=== PATIENT | female | born 1980 | race Caucasian/White ===

== ENCOUNTER 2018-10-18 11:35 | Inpatient (IN) | payer OTHER ==
[2018-10-18] MEDS ORDERED: CITRIC ACID/SODIUM CITRATE 30 ML UNIT-DOSE CUP PO ONE (12:25)
[2018-10-18] MEDS: ELECTROLYTE-148 SOLN 1,000 ML IV SCH ×2 (12:45→17:03)
[2018-10-18 13:29] VITALS: BMI 31.1
[2018-10-18 14:19] LABS: BASO % 0.2 % (0-2.0); EOS % 0.2 % (0-4.5); HEMATOCRIT 34.7 % (32.4-45.2); HEMOGLOBIN 11.9 GM/dL (10.7-15.3); LYMPH % 12.2 % (8-40); MCH 27.1 pg (25.7-33.7); MCHC 34.3 g/dl (32.0-36.0); MEAN PLT VOLUME 8.8 fl (7.5-11.1); MONO % 4.8 % (3.8-10.2); NEUT % 82.6 % (42.8-82.8); PLATELET COUNT 233 K/MM3 (134-434); RBC 4.39 M/mm3 (3.60-5.2); RDW 16.9 % (11.6-15.6); WHITE BLOOD COUNT 7.8 K/mm3 (4.0-10.0)
[2018-10-18 14:38] LABS: ALBUMIN 2.9 g/dl (3.4-5.0); ALK PHOS 185 U/L (45-117); ANION GAP 8 MMOL/L (8-16); BILIRUBIN,TOTAL 0.3 mg/dL (0.2-1); BLOOD UREA NITROGEN 6 mg/dL (7-18); CALCIUM 9.1 mg/dL (8.5-10.1); CHLORIDE 104 mmol/L (98-107); CO2 26 mmol/L (21-32); CREATININE 0.5 mg/dL (0.55-1.3); GLUCOSE,RANDOM 82 mg/dL (74-106); POTASSIUM 3.8 mmol/L (3.5-5.1); SGOT/AST 18 U/L (15-37); SGPT/ALT 16 U/L (13-61); SODIUM 139 mmol/L (136-145); TOT PROT 6.6 g/dl (6.4-8.2)
[2018-10-18 14:47] LABS: RPR NONREACTIVE (NONREACTIVE)
--- NOTE | 2018-10-18 15:27 | HP ---
Past Medical History - Admission Chief Complaint: Sent up from [facility]. History of Present Illness: 38 y/o female with SIUP at 38.1 weeks by dates/38.4 weeks by sonogram sent up from [facility] for marginal cord insertion and low EUGENIA, breech presentation and EFW 15%ile - [facility] recommended delivery. Pt with h/o previous c section and baby in breech presentation. History Source: Patient, Medical Record Limitations to Obtaining History: No Limitations - Past Medical History Cardiovascular: No: HTN Pulmonary: No: COPD Hepatobiliary: No: Hepatitis B ...: 4 ...Para: 2 ...Term: 2 ...: 0 ...Spon : 1 ...Induced : 0 ...Multiple Gestation: 0 ...LMP: 01/24/18 ... Weeks Gestation by Dates: 38.1 ...EDC by Dates: 10/31/18 ...EDC by Sono: 10/29/18 Heme/Onc: No: Anemia Psych: No: Anxiety, Bipolar, Depression Endocrine: No: Diabetes Mellitus, Hypothyroidism - Past Surgical History Past Surgical History: Yes: Hx Myomectomy: No Hx Transabdominal Cerclage: No - Smoking History Smoking history: Never smoked Have you smoked in the past 12 months: No - Alcohol/Substance Use Hx Alcohol Use: No - Social History Usual Living Arrangement: Yes: With Spouse ADL: Independent History of Recent Travel: No Home Medications - Allergies Allergies/Adverse Reactions: Allergies Allergy/AdvReac Type Severity Reaction Status Date / Time No Known Allergies Allergy Verified 10/18/18 12:52 - Home Medications Home Medications: Ambulatory Orders Ferrous Sulfate 325 mg PO DAILY 09/06/18 Pnv No.95/Ferrous Fum/Folic AC [ Vitamin Tablet] 1 each PO DAILY Review of Systems - Review of Systems Constitutional: reports: No Symptoms Eyes: reports: No Symptoms HENT: reports: No Symptoms Neck: reports: No Symptoms Cardiovascular: reports: No Symptoms Respiratory: reports: No Symptoms Gastrointestinal: reports: No Symptoms Genitourinary: reports: No Symptoms Breasts: reports: No Symptoms Reported Musculoskeletal: reports: No Symptoms Integumentary: reports: No Symptoms Neurological: reports: No Symptoms Endocrine: reports: No Symptoms Hematology/Lymphatic: reports: No Symptoms Psychiatric: reports: No Symptoms Physical Exam - Maternity Vital Signs: Vital Signs Temperature 98.1 F 10/18/18 12:25 Pulse Rate 71 10/18/18 12:25 Respiratory Rate 17 10/18/18 12:25 Blood Pressure 109/65 10/18/18 12:25 O2 Sat by Pulse Oximetry (%) Constitutional: Yes: Well Nourished, No Distress, Calm Eyes: Yes: Conjunctiva Clear, EOM Intact HENT: Yes: Atraumatic, Normocephalic Neck: Yes: Supple, Trachea Midline Cardiovascular: Yes: Regular Rate and Rhythm Lungs: Clear to auscultation - Abdominal Exam/OB Number of Fetuses: Single Presentation: Breech Contractions: No Monitor Mode: External Category: I Accelerations: Uniform Decelerations: None - Vaginal Exam/OB Vaginal Bleediing: No - Physical Exam Psychiatric: Yes: Alert, Oriented - Labs Lab Results: CBC, BMP 10/18/18 13:15 10/18/18 13:15 Hemorrhage Risk Assessment - Risk Factors Medium Risk Factors: Yes: None High Risk Factors: Yes: None Risk Score: 1 Risk Level: Medium Risk Problem List - Problems (1) Breech presentation Code(s): O32.1XX0 - MATERNAL CARE FOR BREECH PRESENTATION, UNSP (2) Marginal insertion of umbilical cord affecting management of mother in third trimester Code(s): O43.193 - OTHER MALFORMATION OF PLACENTA, THIRD TRIMESTER Assessment/Plan 38 y/o with SIUP at 38+ weeks gestation, recommended delivery by MFM NPO for repeat c section anesthesia/nursing aware
[2018-10-18 16:17] LABS: INR 0.98 (0.83-1.09); PROTHROMBIN TIME (PATIENT) 11.6 SEC (9.7-13.0)
[2018-10-18] MEDS ORDERED: ONDANSETRON 4 MG/2 ML VIAL IVPUSH PRN (16:17)
[2018-10-18 16:20] LABS: ACTIVATED PTT 29.2 SECONDS (25.2-36.5)
[2018-10-18] MEDS ORDERED: morphine SULFATE/Preservative Free 0.5 MG/ML (1cc Syringe) ONE (18:49)
[2018-10-18] MEDS ORDERED: KETOROLAC TROMETHAMINE 30 MG/1 ML VIAL ONE (18:49)
[2018-10-18] MEDS ORDERED: BUPIVACAINE 0.75% IN DEXTROSE/PF 2ML AMPULE NR ONE (18:51)
[2018-10-18] MEDS ORDERED: IBUPROFEN 800 MG/8 ML IJ IVPB PRN (19:15)
[2018-10-18] MEDS ORDERED: OXYTOCIN 20 UNITS in 0.9% NS 20 UNIT/1,000 ML INFUS.BAG IV SCH (19:15)
[2018-10-18] MEDS ORDERED: METHYLERGONOVINE MALEATE 0.2 MG/1 ML AMP IM PRN (19:15)
[2018-10-18] MEDS ORDERED: oxyCODONE HCL 5 MG TABLET PO PRN (19:15)
[2018-10-18] MEDS ORDERED: ceFAZolin SODIUM 1 GM VIAL ONE (19:24)
[2018-10-18] MEDS ORDERED: OXYTOCIN 20 UNITS in 0.9% NS 20 UNIT/1,000 ML INFUS.BAG IV ONE (19:27)
[2018-10-18] MEDS ORDERED: ePHEDrine SULFATE 50 MG/1 ML AMPULE ONE (19:27)
--- NOTE | 2018-10-18 21:09 | OP ---
Operative Note - Note: Operative Date: 10/18/18 Pre-Operative Diagnosis: oligohydramnios, marginal cord insertion, breech, prior c section Operation: repeat low transverse c section Post-Operative Diagnosis: Same as Pre-op Surgeon: Beatrice Bonilla District Recruiter: David Newby Anesthesiologist/SLOT ROUTER: Zack Bay Specimens Removed: placenta Estimated Blood Loss (mls): 600 Operative Report Dictated: Yes
[2018-10-18] MEDS ORDERED: TUBERCULIN PPD 5 TU/0.1ML SYRINGE (IN PATIENT USE ONLY) ID ONE (22:15)
[2018-10-19 04:17] LABS: HBsAG SCREEN Negative (Negative)
[2018-10-19 06:10] LABS: BASO % 0.2 % (0-2.0); EOS % 0.2 % (0-4.5); HEMATOCRIT 29.8 % (32.4-45.2); HEMOGLOBIN 9.6 GM/dL (10.7-15.3); LYMPH % 7.4 % (8-40); MCH 25.8 pg (25.7-33.7); MCHC 32.2 g/dl (32.0-36.0); MEAN CELL VOLUME 80.1 fl (80-96); MONO % 5.4 % (3.8-10.2); NEUT % 86.8 % (42.8-82.8); PLATELET COUNT 182 K/MM3 (134-434); RBC 3.72 M/mm3 (3.60-5.2); WHITE BLOOD COUNT 11.5 K/mm3 (4.0-10.0)
--- NOTE | 2018-10-19 08:29 | PN ---
Progress Note (short form) - Note Progress Note: Post op day#1.S/P C Section under spinal anesthesia with duramorph uneventful.Patient stable and c/o some pain for which she is on medication.No any anesthesia related problem.Patient Dc from the anesthesia care.
--- NOTE | 2018-10-19 09:17 | PN ---
Post Progress Note - Subjective Subjective: Pt seen/evaluated and doing well. Minimal pain. Bleeding normal per nursing staff. Tolerating clears. Not yet OOB. Type of Delivery: Repeat C/S Vital Signs: Vital Signs Temperature 97.9 F 10/19/18 06:00 Pulse Rate 89 10/19/18 06:00 Respiratory Rate 20 10/19/18 06:00 Blood Pressure 91/56 L 10/19/18 06:00 O2 Sat by Pulse Oximetry (%) 100 10/18/18 21:10 Uterus: Yes: Fundus Firm Incision: Yes: Dressing dry and intact Abdomen/GI: Yes: Abdomen soft Lochia: Yes: Rubra Lochia, amount: Small Extremities: Yes: Calves non-tender Perineum: Yes: Intact Activity: Other (to get OOB today) - Labs Labs: CBC WBC 11.5 K/mm3 (4.0-10.0) H 10/19/18 05:56 RBC 3.72 M/mm3 (3.60-5.2) 10/19/18 05:56 Hgb 9.6 GM/dL (10.7-15.3) L 10/19/18 05:56 Hct 29.8 % (32.4-45.2) L 10/19/18 05:56 MCV 80.1 fl (80-96) 10/19/18 05:56 MCH 25.8 pg (25.7-33.7) 10/19/18 05:56 MCHC 32.2 g/dl (32.0-36.0) 10/19/18 05:56 RDW 17.0 % (11.6-15.6) H 10/19/18 05:56 Plt Count 182 K/MM3 (134-434) D 10/19/18 05:56 MPV 8.0 fl (7.5-11.1) 10/19/18 05:56 Absolute Neuts (auto) 10.0 K/mm3 (1.5-8.0) H 10/19/18 05:56 Neutrophils % 86.8 % (42.8-82.8) H 10/19/18 05:56 Lymphocytes % 7.4 % (8-40) L D 10/19/18 05:56 Monocytes % 5.4 % (3.8-10.2) 10/19/18 05:56 Eosinophils % 0.2 % (0-4.5) 10/19/18 05:56 Basophils % 0.2 % (0-2.0) 10/19/18 05:56 Nucleated RBC % 0 % (0-0) 10/19/18 05:56 Problem List - Problems (1) Breech presentation Code(s): O32.1XX0 - MATERNAL CARE FOR BREECH PRESENTATION, UNSP (2) Marginal insertion of umbilical cord affecting management of mother in third trimester Code(s): O43.193 - OTHER MALFORMATION OF PLACENTA, THIRD TRIMESTER (3) delivery delivered Code(s): O82 - ENCOUNTER FOR DELIVERY WITHOUT INDICATION Assessment/Plan POD 1 doing well OOB, d/c santana today advance diet as tolerated routine care
[2018-10-19] MEDS: PRENATAL VITAMINS W/ FOLIC ACID TABLET (FP) PO SCH (12:21)
[2018-10-19] MEDS: oxyCODONE HCL 5 MG TABLET PO PRN ×2 (15:46→20:00)
[2018-10-19] MEDS: ACETAMINOPHEN 325 MG TABLET (FP) PO PRN ×2 (15:47→19:59)
[2018-10-19] MEDS: SIMETHICONE 80 MG TAB.CHEW (FP) PO PRN ×2 (15:48→20:04)
[2018-10-19] MEDS ORDERED: BISACODYL 10 MG SUPP.RECT RC PRN (19:15)
[2018-10-20] MEDS: ACETAMINOPHEN 325 MG TABLET (FP) PO PRN (01:38)
[2018-10-20] MEDS: SIMETHICONE 80 MG TAB.CHEW (FP) PO PRN ×4 (01:38→21:38)
[2018-10-20] MEDS: oxyCODONE HCL 5 MG TABLET PO PRN ×4 (01:38→21:38)
--- NOTE | 2018-10-20 07:56 | PN ---
Progress Note (SOAP) - Current Medications Current Medications: Active Medications Acetaminophen (Tylenol -) 650 mg PO Q4H PRN PRN Reason: FEVER Last Admin: 10/20/18 01:38 Dose: 650 mg Bisacodyl (Dulcolax Suppository -) 10 mg RC PRN PRN PRN Reason: CONSTIPATION Diphenhydramine HCl (Benadryl Injection -) 25 mg IVPUSH Q4H PRN PRN Reason: Pruritis Diphtheria/Tetanus/Acell Pertussis (Boostrix -) 0.5 ml IM .ONCE ONE Stop: 10/20/18 10:01 Parenteral Electrolytes (Plasma-Lyte 148 -) 1,000 mls @ 250 mls/hr IV ASDIR [facility] Last Admin: 10/18/18 17:03 Dose: 250 mls/hr Oxytocin/Sodium Chloride (Normal Saline+20 Units Oxytocin -) 20 unit in 1,000 mls @ 125 [facility] Last Admin: 10/18/18 19:31 Dose: 125 mls/hr Ibuprofen (Motrin -) 600 mg PO Q4H PRN PRN Reason: PAIN LEVEL 1 - 3 Ibuprofen (Caldolor Injection -) 800 mg IVPB Q8H PRN PRN Reason: PAIN LEVEL 6-10 Last Admin: 10/19/18 08:15 Dose: 800 mg Influenza Virus Vaccine Quadrival (Fluarix Quad [id number] Syringe) 60 mcg IM ONCE ONE Stop: 10/20/18 10:01 Methylergonovine Maleate (Methergine Injection -) 0.2 mg IM Q4H PRN PRN Reason: Excessive Bleeding (L&D) Ondansetron HCl (Zofran Injection) 4 mg IVPUSH Q4H PRN PRN Reason: NAUSEA Stop: 10/25/18 16:16 Oxycodone HCl (Roxicodone -) 5 mg PO Q4H PRN PRN Reason: PAIN LEVEL 4 - 6 Last Admin: 10/20/18 01:38 Dose: 5 mg Oxycodone HCl (Roxicodone -) 10 mg PO Q4H PRN PRN Reason: PAIN LEVEL 7 - 10 Multivit/Folic Acid/Iron ( Vitamins (Sjr) -) 1 tab PO DAILY [facility] Last Admin: 10/19/18 12:21 Dose: Not Given Simethicone (Mylicon -) 80 mg PO Q4H PRN PRN Reason: GAS Last Admin: 10/20/18 01:38 Dose: 80 mg - Objective Vital Signs: Vital Signs Temperature 98.7 F 10/19/18 22:00 Pulse Rate 73 10/19/18 22:00 Respiratory Rate 20 10/20/18 03:00 Blood Pressure 96/60 10/19/18 22:00 O2 Sat by Pulse Oximetry (%) 100 10/18/18 21:10 Constitutional: Yes: Well Nourished, No Distress Neck: Yes: WNL Respiratory: Yes: WNL Gastrointestinal: Yes: WNL, Soft ....Post : Yes: Uterus firm, Uterus non-tender Breast(s): Yes: WNL Musculoskeletal: Yes: WNL Extremities: Yes: WNL Peripheral Pulses WNL: No Edema: No Wound/Incision: Yes: Clean/Dry, Steri Strips, Open to air, Dressing Removed Neurological: Yes: WNL, Alert, Oriented Labs Lab Results: CBC, BMP 10/19/18 05:56 10/18/18 13:15 Assessment/Plan SP CS POD2 Plan Continued present management DC home in am if stable
[2018-10-20] MEDS: IBUPROFEN 600 MG TABLET (FP) PO PRN ×3 (08:56→21:39)
[2018-10-20] MEDS ORDERED: DIPHTH,PERTUSS(ACELL),TET 0.5 ML DISP.SYRIN IM ONE (10:00)
[2018-10-20] MEDS ORDERED: FLU VACCINE QUAD 60 MCG/0.5 ML (MDV 18-19) IM ONE (10:00)
[2018-10-20] MEDS: PRENATAL VITAMINS W/ FOLIC ACID TABLET (FP) PO SCH (10:00)
[2018-10-21 08:01] VITALS: BP 96/60; PULSE 83; TEMP 98.2
[2018-10-21] MEDS: PRENATAL VITAMINS W/ FOLIC ACID TABLET (FP) PO SCH (09:07)
[2018-10-21] MEDS: IBUPROFEN 600 MG TABLET (FP) PO PRN (09:11)
[2018-10-21] MEDS: ACETAMINOPHEN 325 MG TABLET (FP) PO PRN (09:13)
[2018-10-21] MEDS: SIMETHICONE 80 MG TAB.CHEW (FP) PO PRN (09:13)
[2018-10-21 09:21] LABS: BASO % 0.4 % (0-2.0); HEMATOCRIT 32.4 % (32.4-45.2); HEMOGLOBIN 10.9 GM/dL (10.7-15.3); LYMPH % 8.6 % (8-40); MCH 26.9 pg (25.7-33.7); MCHC 33.5 g/dl (32.0-36.0); MEAN CELL VOLUME 80.2 fl (80-96); MEAN PLT VOLUME 8.4 fl (7.5-11.1); MONO % 4.7 % (3.8-10.2); NEUT % 85.3 % (42.8-82.8); PLATELET COUNT 246 K/MM3 (134-434); RBC 4.05 M/mm3 (3.60-5.2); RDW 17.3 % (11.6-15.6); WHITE BLOOD COUNT 8.2 K/mm3 (4.0-10.0)
--- NOTE | 2018-10-21 11:04 | DS ---
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: Vital Signs Temperature 98.2 F 10/21/18 07:40 Pulse Rate 83 10/21/18 07:40 Respiratory Rate 18 10/21/18 07:40 Blood Pressure 96/60 10/21/18 07:40 O2 Sat by Pulse Oximetry (%) 100 10/18/18 21:10 Constitutional: Yes: Well Nourished, No Distress Cardiovascular: Yes: WNL Respiratory: Yes: WNL Gastrointestinal: Yes: WNL ....Post : Yes: Uterus firm, Uterus non-tender Breast(s): Yes: WNL Musculoskeletal: Yes: WNL Extremities: Yes: WNL Edema: No Wound/Incision: Yes: Steri Strips, Open to air Neurological: Yes: WNL, Alert, Oriented Labs: CBC, BMP 10/21/18 08:30 10/18/18 13:15 Delivery - Delivery Type of Anesthesia: Spinal EBL (cc): 600 Delivery, Single - Stages of Labor Date of Delivery: 10/18/18 Time of Delivery: 19:30 Time Placenta Delivered: 19:31 - Condition of Infant 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 Present: Yes Name: Latricia Conway Gender: Female Weight: 6 lb 2 oz Total Hours ROM (Hrs/Mins): 0Hrs/2Mins - 1 Minute Total Score: 8 5 Minutes Total Score: 9 - [place] Feeding Plan Initial Plan: Elected not to breastfeed exclusively throughout hospitalization Discharge Summary Current Active Problems Breech presentation (Acute) delivery delivered (Acute) Marginal insertion of umbilical cord affecting management of mother in third trimester (Acute) Procedures: Principal: Section Condition: Good - Instructions Diet, Activity, Other Instructions: Physical activity Resume your normal everyday activity as tolerated no heavy lifting or exercise until seen by your surgeon. You may walk unlimited adin of and climb stairs. You may resume driving the car when you feel safe and comfortable behind the wheel. No sexual activity as instructed. Wound care If you have a bandage, leave it on, and keep dry for 48-72 hours. After that time discard the outer bandage. If they are tapes on the skin under the out of bandage leave them in place. They will peel off in the next 7 to 10 days. Do Not Peel them off. You may shower the day after surgery. If there are tapes present on the skin, you may shower over them. Diet There are no dietary restrictions. Eat healthy, high-fiber foods. Drink 6 to 8 glasses of liquid each day. This will assist in keeping your bowels are regular. Pain management You may take Tylenol or acetaminophen or Ibuprofen (for example, Motrin, Advil etc.) from my pain prescription medication is ordered should be taken as prescribed for moderate to severe pain. Call MD for any of the following: Severe pain not relieved by medication Fever of 101 or higher Excessive bleeding or drainage on dressing Inability to urinate Call Dr. Bonilla and make appt. to be seen in one week. Referrals: Beatrice Bonilla DO [Staff Physician] - Disposition: HOME - Home Medications Comprehensive Discharge Medication List: Ambulatory Orders Ferrous Sulfate 325 mg PO DAILY 09/06/18 Pnv No.95/Ferrous Fum/Folic AC [ Vitamin Tablet] 1 each PO DAILY Ibuprofen [Motrin -] 600 mg PO QID #28 tablet 10/21/18 Oxycodone HCl/Acetaminophen [Percocet 5-325 mg Tablet] 1 - 2 tab PO Q6H #20 tab MDD 6 10/21/18
--- NOTE | 2018-10-21 21:06 | OP ---
DATE OF OPERATION: 10/18/2018 PREOPERATIVE DIAGNOSES: Reported oligohydramnios, marginal cord insertion, breech presentation, prior section. POSTOPERATIVE DIAGNOSES: Reported oligohydramnios, marginal cord insertion, breech presentation, prior section. OPERATION: Repeat low-transverse section. SURGEON: Beatrice Bonilla MD ANESTHESIA: Spinal by Dr. Zack Bay TOWER HAND: MEHNAZ Covarrubias COMPLICATIONS: None. ESTIMATED BLOOD LOSS: 600 mL. SPECIMENS REMOVED: Placenta. COUNTS: Sponge, needle, and instrument count correct. DISPOSITION: Stable to PACU. BRIEF HISTORY AND PROCEDURE: Patient is a 38-year-old female who had had a routine perinatology ultrasound for growth secondary to marginal cord insertion, was found to have an EUGENIA of 5.6 and an estimated weight percentage which was decreasing/dropping off the growth curve. Because the patient was 38 weeks gestation, the perinatologist recommended delivery at this time. Patient had a prior delivery and the fetus was in breech presentation at this point. Plan was made for a repeat section. Consents for the procedure were signed with the patient. She was then taken back to the operating room that evening, as her condition was stable and she had eaten at approximately 11 a.m. the procedure was started at approximately 7 p.m. After the patient was taken back to the operating room, she was given spinal anesthesia and placed in the dorsal supine position. A Novak catheter was placed under sterile conditions. She was prepped and draped in the usual sterile fashion and a hard timeout was performed. A Pfannenstiel skin incision was created in the skin where her prior incision was noted. This incision was carried to the underlying layer of the fascia sharply and the rectus fascia was incised on either side of the midline and this incision was carried in a superior lateral direction sharply. The fascia was tented upward and dissected off the underlying layer of rectus muscle sharply. The musculature was identified in the midline and the muscles were laterally and the peritoneum was entered bluntly. The bladder blade was inserted to protect the bladder, and a transverse incision on the lower uterine segment sharply, which was extended in a superolateral direction bluntly. First the infant's sacrum was identified and the sacrum transverse to the left. The hips were gently elevated out of the abdomen, and legs were delivered in a flexed position, first left and then right, by placing pressure in the posterior aspect of the knee to affect delivery of the legs. The baby was then delivered up until the level of the axilla. The fetus was then rotated 180 degrees clockwise and the left arm was delivered in a flexed position by placing pressure in the antecubital fossa and sweeping the arm across the chest. The same was repeated on the right arm after rotation 180 degrees counterclockwise. The head was then delivered in a flexed position and the infant was taken over to the neonatology staff to be assessed, where Apgars of 8 and 9 were assigned. The placenta was then delivered with a 3-vessel cord. This was manually extracted. The uterus was then exteriorized from the abdomen, inspected, and cleared of all amniotic membrane and debris with a dry lap sponge. The hysterotomy was reapproximated in a double-layer closure using 1 Vicryl in a running locked fashion, the 2nd layer using 0 Biosyn. Bilateral tubes and ovaries were noted to be normal. The posterior cul-de-sac was suctioned. Then the uterus was placed back in the abdomen. Bilateral gutters were inspected and cleared of all amniotic membrane and debris with a moist lap sponge. Again the hysterotomy incision was noted to be hemostatic. The peritoneum was reapproximated using 0 Biosyn in a running fashion. The musculature was reapproximated with 2 interrupted sutures using 0 Biosyn. The fascia was reapproximated using 1 Vicryl in a running fashion. The subcutaneous tissue was irrigated. Any bleeding was cauterized with the Bovie device. Secondary to the patient's history of a wound dehiscence with unknown suture material, a plan was made to close the skin with kilo, which was completed at this time and a dressing was applied. The patient was taken from the operating room in stable condition. All sponges and instrument counts were reported to be correct and she was recovering in the PACU after the procedure in stable condition. BEATRICE BONILLA DO /[id number] MTDD
--- NOTE | 2018-10-26 17:26 | PATH ---
Surgical Pathology Report Patient Name: ANANDA SNEED Med. Rec. 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 Specimen(s) Received PLACENTA Clinical History , 1999, 2013, SAB x1 Advanced maternal age, marginal cord insertion, history of cholecystectomy 2010, poor growth at 15%, oligohydramnios Final Diagnosis PLACENTA, SECTION: 346 G THIRD TRIMESTER PLACENTA WITH TRIVASCULAR UMBILICAL CORD WITH VELAMENTOUS INSERTION AND UNREMARKABLE PLACENTAL MEMBRANES. Electronically Signed Colleen Peña M.D. Gross Description The specimen is received fresh labeled placenta and is a 346 gram, 14.5 x 14.0 x 3.3 cm. placenta with attached membranes and umbilical cord. The attached membranes are sparks, thick, cloudy and insert marginally. The umbilical cord measures 30 cm. in length and averages 1.0 cm. in diameter. The cord displays velamentous insertion. No true knots or strictures are identified. Cut surface of the umbilical cord reveals 3 vessels. The surface is friend-blue with minimal fibrin deposition and appropriate caliber vessels. The maternal surface is red-brown with focal defects. Sectioning reveals red-brown, spongy parenchyma. No lesions are identified. Licensed Embalmer sections are submitted in three cassettes as follows: 1- membrane rolls and umbilical cord; 2-3- full thickness sections of placenta. /10/25/2018 saudi10/25/2018
== END 2018-10-21 13:40 | disposition home or self-care (01) | DRG 540 ==
LOC: JDEL 11:35 → JLDR 12:25 → J3W 22:01
PROVIDERS: ADMIT Obstetrics & Gynecology; ATTEND Obstetrics & Gynecology
PROC: 10D00Z1 Extraction of Products of Conception, Low, Open Approach (ICD-10-PCS; principal; 2018-10-18)
DX: O43.193 Other malformation of placenta, third trimester (principal); O41.03X0 Oligohydramnios, third trimester, not applicable or unspecified; O32.1XX0 Maternal care for breech presentation, not applicable or unspecified; O34.211 Maternal care for low transverse scar from previous cesarean delivery; Z3A.38 38 weeks gestation of pregnancy; Z37.0 Single live birth
CPT/HCPCS: 36415; 80053; 85025; 85610; 85730; 86593; 86762; 86850; 86900; 86901; 87340; 87389; 88307-TC; 90686; 90715; G0008